=== PATIENT | female | born 1980 | race Caucasian/White ===

== ENCOUNTER 2023-12-09 20:10 | Emergency (ER) | payer OTHER ==
[~2023-12-09] VITALS: Ht 167.6 cm; Wt 56.2 kg
[2023-12-09 20:58] LABS: BASOPHILS # (AUTO) 0.1 K/uL (0.0-0.2); BASOPHILS % (AUTO) 0.7 % (0.0-2.0); EOSINOPHILS # (AUTO) 0.1 K/uL (0.0-0.7); EOSINOPHILS % (AUTO) 1.3 % (0.0-6.0); HEMATOCRIT 36 % (33-45); LYMPHOCYTES # (AUTO) 2.4 K/uL (0.8-4.8); LYMPHOCYTES % (AUTO) 30.2 % (20.0-44.0); MEAN CORPUSCULAR HEMOGLOBIN 30 PG (26.0-33.0); MEAN CORPUSCULAR HGB CONC 33 g/dl (31.0-36.0); MEAN CORPUSCULAR VOLUME 90 fL (82-100); MONOCYTES # (AUTO) 0.8 K/uL (0.1-1.30); MONOCYTES % (AUTO) 9.6 % (2.0-12.0); NEUTROPHILS # (AUTO) 4.6 K/uL (1.8-8.9); NEUTROPHILS % (AUTO) 58.2 % (43.0-81.0); PLATELET COUNT (AUTO) 221 K/uL (150-450); RED BLOOD CELL COUNT(AUTO) 4.04 MIL/uL (4.0-5.2); RED CELL DISTRIBUTION WIDTH 13.1 % (11.5-15.0); WHITE BLOOD COUNT (AUTO) 7.9 K/uL (4.3-11.0)
[2023-12-09 21:06] LABS: CALCIUM, SERUM 8.5 mg/dL (8.5-10.1); CARBON DIOXIDE 29 mmol/L (21-32); CHLORIDE 103 mmol/L (98-107); CREATININE 0.9 mg/dL (0.6-1.3); GLUCOSE 98 mg/dL (74-106); POTASSIUM 4.4 mmol/L (3.5-5.1); SODIUM SERUM 136 mmol/L (136-145); UREA NITROGEN, BLOOD 15 mg/dL (7-18)
[2023-12-09 21:19] LABS: NT-PRO BNP 35 pg/mL (0-125)
[2023-12-09 21:43] VITALS: BP 110/80; TEMP 98.2; O2SAT 100
== END 2023-12-09 21:44 | disposition home or self-care (01) ==
LOC: ER 20:13
DX: R07.89 Other chest pain (principal)
CPT/HCPCS: 36415; 71045-TC; 80048-TC; 83880; 84484-TC; 85025-TC

== ENCOUNTER 2024-05-28 23:14 | Emergency (ER) | payer SELFPAY ==
[~2024-05-28] VITALS: Ht 157.5 cm; Wt 70.6 kg
[2024-05-28 23:53] VITALS: BP 124/79; TEMP 98.8; O2SAT 98
[2024-05-29] MEDS ORDERED: ACETAMINOPHEN ES 500 MG TABLET ONE (00:04)
[2024-05-29] MEDS: ACETAMINOPHEN ES 500 MG TABLET PO ONE (00:08)
[2024-05-29 00:09] VITALS: O2SAT 98
== END 2024-05-29 00:09 | disposition home or self-care (01) ==
LOC: ER 23:16 → EDSEX 23:16 → EDBD 23:16 → ER 05-29 00:09
DX: S09.8XXA Other specified injuries of head, initial encounter (principal); Y04.0XXA Assault by unarmed brawl or fight, initial encounter; Y93.89 Activity, other specified; Y92.218 Other school as the place of occurrence of the external cause; Y99.8 Other external cause status

== ENCOUNTER 2025-05-15 23:10 | Emergency (ER) | payer OTHER ==
[~2025-05-15] VITALS: Ht 167.6 cm; Wt 54.0 kg
[2025-05-16] MEDS: MECLIZINE HCL 25 MG TABLET PO ONE (00:26)
[2025-05-16] MEDS: IV NS 0.9% 1,000 ML BAG IV ONE (00:26)
[2025-05-16] MEDS ORDERED: MECLIZINE HCL 25 MG TABLET ONE (00:26)
[2025-05-16 00:31] LABS: PLATELET COUNT (AUTO) 227 K/uL (150-450); RED BLOOD CELL COUNT(AUTO) 4.16 MIL/uL (4.0-5.2); RED CELL DISTRIBUTION WIDTH 12.8 % (11.5-15.0); WHITE BLOOD COUNT (AUTO) 7.8 K/uL (4.3-11.0)
[2025-05-16 00:39] LABS: CALCIUM, SERUM 8.7 mg/dL (8.5-10.1); CREATININE 1.0 mg/dL (0.6-1.3); SODIUM SERUM 141.0 mmol/L (136-145); UREA NITROGEN, BLOOD 18.0 mg/dL (7-18)
[2025-05-16] MEDS ORDERED: MECL-159 PO (01:28)
[2025-05-16 01:51] VITALS: BP 122/77; TEMP 98.5; O2SAT 100
== END 2025-05-16 01:51 | disposition home or self-care (01) ==
LOC: ER 23:12
DX: R42 Dizziness and giddiness (principal); F41.9 Anxiety disorder, unspecified; G47.00 Insomnia, unspecified
CPT/HCPCS: 99284; 96360; 93005; 85025; 80048; 36415; J8597; J7030